=== PATIENT | female | born 1980 | race Caucasian/White ===

== ENCOUNTER → 2021-09-30 | Outpatient (CLI) | payer BC | LOC: M LABSMTC 11:43 | PROVIDERS: ATTEND Anesthesiology | DX: Z01.812 Encounter for preprocedural laboratory examination (principal); Z20.822 Contact with and (suspected) exposure to COVID-19 ==

== ENCOUNTER 2021-10-04 12:23 | Day surgery (SDC) | payer BC ==
[~2021-10-04] VITALS: Ht 160 cm; Wt 65.8 kg
[~2021-10-04 12:23] MED LIST: NS 1,000 ML IV ONE
[2021-10-04 14:05] VITALS: BP 108/70
== END 2021-10-04 14:16 | disposition home or self-care (01) ==
LOC: M OPP 12:23
PROVIDERS: ATTEND Surgery
DX: Z12.11 Encounter for screening for malignant neoplasm of colon (principal); Z80.0 Family history of malignant neoplasm of digestive organs; Z90.5 Acquired absence of kidney; F17.200 Nicotine dependence, unspecified, uncomplicated